=== PATIENT | male | born 1955 | race Caucasian/White ===

== ENCOUNTER → 2017-03-23 | Outpatient (CLI) | payer OTHER ==
--- NOTE | 2017-03-23 15:51 | DIAGNOSTIC IMAGING REPORT ---
LUMBAR SPINE MIN 4 VIEWS CLINICAL HISTORY: LOWER BACK PAIN COMPARISON STUDY: No previous studies for comparison. FINDINGS: No acute fractures are visualized. There is L4-5 fusion. There is a grade 1 listhesis of L3 on L4. There are multilevel degenerative changes. No destructive lesions are visualized. There is heterotopic ossification superior to the right greater trochanter. IMPRESSION: 1. No acute fractures 2. Multilevel degenerative change 3. Heterotopic ossification superior to the greater trochanter of the right hip Electronically signed by: Jonathan Trejo M.D. 03/23/2017 3:49 PM Dictated Date/Time: 03/23/2017 3:48 PM
== END | disposition home or self-care (01) ==
LOC: C.RDSM 12:51
PROVIDERS: ATTEND Family Medicine
DX: M54.5 Low back pain (principal); M47.896 Other spondylosis, lumbar region

== ENCOUNTER → 2017-08-01 | Outpatient (CLI) | payer OTHER | END | disposition home or self-care (01) | LOC: C.LAB 10:05 | PROVIDERS: ATTEND Urology | DX: N52.9 Male erectile dysfunction, unspecified (principal) ==

== ENCOUNTER → 2017-09-24 | Outpatient (CLI) | payer OTHER | END | disposition home or self-care (01) | LOC: C.LAB 17:50 | PROVIDERS: ATTEND Urology | DX: R97.20 Elevated prostate specific antigen [PSA] (principal) ==

== ENCOUNTER → 2017-10-23 | Outpatient (CLI) | payer OTHER ==
[2017-10-15 15:58] LABS: BLOOD UREA NITROGEN 22 mg/dl (7-18); CREATININE 0.96 mg/dl (0.60-1.40)
[~2017-10-23] MED LIST: GADAVIST IV PRN
--- NOTE | 2017-10-23 11:30 | DIAGNOSTIC IMAGING REPORT ---
PROSTATE MRI COMBO CLINICAL HISTORY: 61 years-old Male presenting with elevated PSA TECHNIQUE: Multisequence, multiplanar MR imaging of the prostate was performed before and after the administration of intravenous contrast. Additional postprocessing was performed on a separate [employer] workstation by the radiologist for 3-D volumetric segmentation of the prostate and contouring of region(s) of interest (SINDY) for targeting. IV contrast: 8 cc intravenous Gadavist COMPARISON: None. FINDINGS: Prostate: The prostate measures 4.6 x 3.6 x 3.4 cm (DynaCAD prostate boundary segmentation volume 29 mL). Moderate changes of benign prostatic hyperplasia. Precontrast T1 weighted imaging demonstrates no evidence of intrinsic T1 hyperintensity to suggest hemorrhage. Suspicious lesion(s) described below: Lesion (DynaCAD SINDY) 1: There is a 1.4 x 1 x 0.9 cm lesion within the left anterior transitional zone at the base level. This is indistinct on T2-weighted imaging, and demonstrates restricted water diffusion. There is no evidence for early enhancement. This is felt to represent a BI-RADS 4 lesion. PI-RADS: 4. Clinically significant cancer is likely to be present. Seminal vesicles normal. Bladder: Normal. Bowel: There is extensive sigmoid diverticulosis with marked muscular hypertrophy Peritoneum: No free fluid in the pelvis. There are bilateral inguinal hernias. The right testis is located within the right inguinal canal Lymph nodes: No lymphadenopathy in the visualized portion of the pelvis. Vasculature: Iliac vessels patent. Abdominal wall: There are bilateral inguinal hernias Osseous structures: Normal bone marrow signal intensity. IMPRESSION: 1. 14 mm lesion in the left transitional at the base. PI-RADS: 4. Clinically significant cancer is likely to be present. This lesion has been segmented for targeted biopsy. 2. Benign prostatic hyperplasia. Electronically signed by: Jonathan Trejo M.D. 10/23/2017 11:28 AM Dictated Date/Time: 10/23/2017 11:08 AM
== END | disposition home or self-care (01) ==
LOC: C.MRIBC 09:19
PROVIDERS: ATTEND Urology
DX: R97.20 Elevated prostate specific antigen [PSA] (principal); N40.1 Benign prostatic hyperplasia with lower urinary tract symptoms

== ENCOUNTER → 2017-11-05 | Outpatient (CLI) | payer OTHER | END | disposition home or self-care (01) | LOC: C.PATHSPEC 18:07 | PROVIDERS: ATTEND Urology | DX: C61 Malignant neoplasm of prostate (principal) ==

== ENCOUNTER → 2018-03-15 | Outpatient (CLI) | payer OTHER ==
[~2018-03-15] MED LIST changes: +ACET300T2 PO; +CIPR1TAB10 PO; +CLC100 PO; +DTR5 PO; +GABA-113 PO; -GADAVIST IV PRN; +SILD100T PO
== END | disposition home or self-care (01) ==
LOC: C.LAB 14:18
PROVIDERS: ATTEND Urology
DX: C61 Malignant neoplasm of prostate (principal)